=== PATIENT | male | born 2000 | race Caucasian/White ===

== ENCOUNTER 2021-06-07 00:55 | Emergency (ER) | payer SELFPAY ==
[2021-06-07] VITALS (10 sets, daily range): BP systolic 109–124; BP diastolic 59–81; PULSE 70–97; RESP 12–23; TEMP 36.6–36.7; O2SAT 99–100
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
[2021-06-07] MEDS: MORPHINE SULFATE (*CRX) 4 MG/ML INJ IV PUSH (02:20)
[2021-06-07] MEDS: TETANUS,DIPHTHERIA,AC PERTUSSIS ADULT (0.5 ML) BOOSTRIX IM (02:21)
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
[2021-06-07] MEDS: SILVER SULFADIAZINE 1% CR 400 GM JAR (*BKC) 1 APPLIC TOPICAL (04:31)
== END 2021-06-07 04:37 | disposition home or self-care (01) ==
PROVIDERS: Emergency Provider Emergency Medicine; PCP Pediatrics
DX: T23.201A Burn of second degree of right hand, unspecified site, initial encounter (principal); X08.8XXA Exposure to other specified smoke, fire and flames, initial encounter; Z23 Encounter for immunization; T31.0 Burns involving less than 10% of body surface
CPT/HCPCS: 16020; 90471; 90715; 96374; 99284; A9270; J2270